=== PATIENT | female | born 1955 | race Caucasian/White ===

== ENCOUNTER 2017-07-04 16:07 | Emergency (ER) | payer BC ==
[2017-07-04] MEDS ORDERED: Sodium Chloride 0.9% 10 ML Syringe FLUSH PRN (16:25)
[2017-07-04] MEDS ORDERED: HYDROmorphone 1 MG/ML Syringe IVPUSH ONE ×2 (16:26→19:05)
[2017-07-04] MEDS ORDERED: Ondansetron 4 MG/2 ML SDV IV ONE (16:26)
--- NOTE | 2017-07-04 17:48 | EDM.PDOC ---
<Ingris Motta - Last Filed: 07/04/17 19:06> ED HPI GENERAL MEDICAL PROBLEM - General Chief Complaint: Abdominal Pain Stated Complaint: ABD/BACK PAINS, [id number] Time Seen by Provider: 07/04/17 16:30 Source of Information: Reports: Patient, Family, RN, RN Notes Reviewed History Limitations: Reports: No Limitations - History of Present Illness INITIAL COMMENTS - FREE TEXT/NARRATIVE: Patient to the ER with c/o severe pain to the left upper quadrant of her abdomen , wrapping around to the back. She states her stomach feels distended. She states the pain began about 2 weeks ago and has progressively gotten worse. She admits to nausea, but denies any vomiting. She states she is always cold, but denies any fever. She states she has a history of cirrhosis, diabetes, hypertension. She states she had an encephalopathic episode in May for which she was seen in [place]. She states she has a CT ordered to be done next week by her doctor at [place]. She states she came in because the pain has become unbearable. Onset: Gradual Location: Reports: Abdomen Severity: Severe Improves with: Reports: None Worsens with: Reports: None Associated Symptoms: Reports: Nausea/Vomiting Abdomen Pain Score (Numeric/FACES): 10 - Related Data Allergies Allergy/AdvReac Type Severity Reaction Status Date / Time codeine Allergy Swollen Verified 09/06/15 07:23 Tongue erythromycin base Allergy Hives Verified 09/06/15 07:23 Penicillins Allergy Anaphylactic Verified 09/06/15 07:23 Shock procaine HCl [From Novocain] Allergy Anaphylactic Verified 09/06/15 07:23 Shock lidocaine-epi Allergy Anaphylactic Uncoded 09/06/15 07:23 Shock Home Meds: Home Meds Blood Sugar Diagnostic [Accu-Chek Ashley] 1 each MC 6XDAY 09/01/15 [History] Cetirizine [ZyrTEC] 10 mg PO DAILY PRN 09/01/15 [History] Cyanocobalamin (Vitamin B-12) [B-12] 1,000 mcg PO DAILY PRN 09/01/15 [History] Cyclobenzaprine [Flexeril] 10 mg PO TID PRN 09/01/15 [History] Insulin Aspart [Novolog Flexpen] 30 units SQ TID 09/01/15 [History] Insulin Glarg,Human.Rec.Analog [LantUS] 76 unit SQ BEDTIME 09/01/15 [History] Lisinopril 10 mg PO DAILY 09/01/15 [History] Naproxen Sodium 440 mg PO DAILY PRN 09/01/15 [History] Sertraline [Zoloft] 50 mg PO DAILY 09/01/15 [History] Simvastatin [Zocor] 40 mg PO BEDTIME 09/01/15 [History] traMADol HCl [Ultram] 50 mg PO Q6HR PRN 09/01/15 [History] Propranolol [Inderal] 10 mg PO DAILY 07/04/17 [History] Sertraline HCl [Sertraline HCl] 50 mg PO DAILY 07/04/17 [History] Past Medical History HEENT History: Reports: Impaired Vision Other HEENT History: chronic sinusitis Strabusmus surgery; WEARS CORRECTIVE LENSES Cardiovascular History: Reports: High Cholesterol, Hypertension Gastrointestinal History: Reports: Cirrhosis, Colon Polyp, Other (See Below) Other Gastrointestinal History: HEMMOCULT POSITIVE STOOLS , esophageal varices with banding Other Genitourinary History: CKD STAGE III Other Musculoskeletal History: SPIRAL FRACTURE OF FEMUR; LEFT ARM FRACTURE; JAW FRACTURE; Psychiatric History: Reports: Addiction Endocrine/Metabolic History: Reports: Diabetes, Type II Other Hematologic History: THROMBOCYTOPENIA - Past Surgical History HEENT Surgical History: Reports: Tonsillectomy, Other (See Below) Other HEENT Surgeries/Procedures: retinopathy, wisdom teeth removal GI Surgical History: Reports: Appendectomy, Cholecystectomy, Colonoscopy, Lysis of Adhesions, Polypectomy Other GI Surgeries/Procedures: RECTAL POLYPECTOMY; ABDOMINAL ADHESIONS REMOVED, CLIP LEFT MARKER Female Surgical History: Reports: Hysterectomy Social & Family History - Tobacco Use Smoking Status *Q: Former Smoker Years of Tobacco use: 40 Used Tobacco, but Quit: Yes Month Tobacco Last Used: 2006 Second Hand Smoke Exposure: No - Caffeine Use Caffeine Use: Reports: Coffee, Soda, Tea - Recreational Drug Use Recreational Drug Use: No ED ROS GENERAL - Review of Systems Constitutional: Reports: No Symptoms HEENT: Reports: No Symptoms Respiratory: Reports: No Symptoms Cardiovascular: Reports: No Symptoms Endocrine: Reports: High Glucose GI/Abdominal: Reports: Abdominal Pain, Distension, Nausea Musculoskeletal: Reports: No Symptoms Skin: Reports: Jaundice Neurological: Reports: No Symptoms Psychiatric: Reports: No Symptoms Hematologic/Lymphatic: Reports: No Symptoms Immunologic: Reports: No Symptoms ED EXAM, GI/ABD - Physical Exam Exam: See Below Exam Limited By: No Limitations General Appearance: Alert, WD/WN, Moderate Distress Ears: Normal External Exam, Hearing Grossly Normal Nose: Normal Inspection, No Blood Throat/Mouth: Normal Inspection, Normal Lips, Normal Voice, No Airway Compromise Head: Atraumatic, Normocephalic Neck: Normal Inspection, Supple, Non-Tender, Full Range of Motion Respiratory/Chest: No Respiratory Distress, Lungs Clear, Normal Breath Sounds, No Accessory Muscle Use, Chest Non-Tender Cardiovascular: Normal Peripheral Pulses, Regular Rate, Rhythm, No Gallop, No Murmur (Female) Exam: Deferred Rectal (Female) Exam: Deferred Back Exam: Normal Inspection Extremities: Normal Inspection, Normal Range of Motion, Non-Tender Neurological: Alert, Oriented, Normal Cognition Psychiatric: Normal Affect, Normal Mood Skin Exam: Warm, Dry, Jaundice Lymphatic: No Adenopathy Course - Vital Signs Last Recorded V/S: Last Vital Signs Temp 36.4 C 07/04/17 18:40 Pulse 51 L 07/04/17 18:40 Resp 18 07/04/17 18:40 BP 139/53 L 07/04/17 18:40 Pulse Ox 99 07/04/17 18:40 - Orders/Labs/Meds Orders: Active Orders 24 hr Category Date Time Status Peripheral IV Care [RC] . DIRECTED Care 07/04/17 16:25 Active Sodium Chloride 0.9% [Saline Flush] Med 07/04/17 16:25 Active 10 ml FLUSH ASDIRECTED PRN Peripheral IV Insertion Adult [OM.PC] Stat Oth 07/04/17 16:25 Ordered Medication Orders Sodium Chloride (Saline Flush) 10 ml FLUSH ASDIRECTED PRN PRN Reason: Keep Vein Open Last Admin: 07/04/17 17:15 Dose: 10 ml Labs: Laboratory Tests 07/04/17 07/04/17 07/04/17 Range/Units 16:40 16:40 16:40 WBC 6.8 (5.0-10.0) 10^3/uL RBC 4.07 L (4.2-5.4) 10^6/uL Hgb 12.4 (12.0-16.0) g/dL Hct 35.3 L (37.0-47.0) % MCV 86.7 (80-100) fL MCH 30.5 (27.0-34.0) pg MCHC 35.1 H (33.0-35.0) g/dL Plt Count 73 L (150-450) 10^3/uL Neut % (Auto) 75.5 H (42.2-75.2) % Lymph % (Auto) 13.5 L (20.5-50.1) % [place]ill % (Auto) 9.9 H (2-8) % Eos % (Auto) 1.0 (1.0-3.0) % Baso % (Auto) 0.1 (0.0-1.0) % Sodium 136 (135-145) mmol/L Potassium 4.3 (3.6-5.0) mmol/L Chloride 106 (101-111) mmol/L Carbon Dioxide 20.0 L (21.0-31.0) mmol/L Anion Gap 14.3 BUN 24 H (7-18) mg/dL Creatinine 1.4 H (0.6-1.3) mg/dL Est Cr Clr Drug Dosing 35.52 mL/min Estimated GFR (MDRD) 38 BUN/Creatinine Ratio 17.14 Glucose 225 H (74-105) mg/dL Calcium 8.7 (8.4-10.2) mg/dl Total Bilirubin 15.9 H (0.2-1.0) mg/dL AST 85 H (10-42) IU/L ALT 31 (10-60) IU/L Alkaline Phosphatase 251 H (42-121) IU/L Ammonia 26 (11-35) umol/L Total Protein 7.1 (6.7-8.2) g/dl Albumin 2.3 L (3.2-5.5) g/dl Globulin 4.8 Albumin/Globulin Ratio 0.48 Meds: Medications Generic Name Dose Route Start Last Admin Trade Name Freq PRN Reason Stop Dose Admin Sodium Chloride 10 ml 07/04/17 16:25 07/04/17 17:15 Saline Flush FLUSH 10 ml ASDIRECTED PRN Administration Keep Vein Open Discontinued Medications Generic Name Dose Route Start Last Admin Trade Name Freq PRN Reason Stop Dose Admin Hydromorphone HCl 0.5 mg 07/04/17 16:26 07/04/17 17:16 Dilaudid IVPUSH 09/22/17 16:27 0.5 mg ONETIME ONE Administration Hydromorphone HCl 0.5 mg 07/04/17 19:05 07/04/17 19:13 Dilaudid IVPUSH 07/04/17 19:06 0.5 mg ONETIME ONE Administration Ondansetron HCl 4 mg 07/04/17 16:26 07/04/17 17:15 Zofran IV 07/04/17 16:27 4 mg ONETIME ONE Administration Departure - Departure Disposition: DC/Tfer to [facility] 02 Clinical Impression: Abdominal pain Qualifiers: Abdominal location: generalized Qualified Code(s): R10.84 - Generalized abdominal pain Ascites Qualifiers: Ascites type: other type Qualified Code(s): R18.8 - Other ascites - Discharge Information Forms: Interfacility Transfer EMTALA <Charles Arzate - Last Filed: 07/04/17 20:09> ED ROS GENERAL - Review of Systems Review Of Systems: ROS reveals no pertinent complaints other than HPI. ED EXAM, GI/ABD - Physical Exam Exam: See Below Course - Re-Assessments/Exams Free Text/Narrative Re-Assessment/Exam: 07/04/17 20:05 results discussed with pt case discussed with Dr Salazar @ who kindly accepted pt. Departure - Departure Time of Disposition: 20:06 Condition: Fair
[2017-07-04 18:41] VITALS: BP 139/53
== END 2017-07-04 20:20 ==
LOC: DL.ED 16:07
DX: R18.8 Other ascites (principal); E78.00 Pure hypercholesterolemia, unspecified; I12.9 Hypertensive chronic kidney disease with stage 1 through stage 4 chronic kidney disease, or unspecified chronic kidney disease; N18.3 Chronic kidney disease, stage 3 (moderate); E11.22 Type 2 diabetes mellitus with diabetic chronic kidney disease; Z79.4 Long term (current) use of insulin; Z87.891 Personal history of nicotine dependence; Z88.5 Allergy status to narcotic agent; Z88.1 Allergy status to other antibiotic agents; Z88.0 Allergy status to penicillin; Z79.899 Other long term (current) drug therapy
CPT/HCPCS: 36415; 74176; 80053; 82140; 85025; 96374; 96375; 96376; 99285; J1170; J2405; J7050